=== PATIENT | female | born 1945 | race Caucasian/White ===

== ENCOUNTER 2021-05-06 14:54 | Day surgery (SDC) | payer MEDICARE, OTHER ==
[2021-05-06] MEDS ORDERED: Sodium Chloride 0.9(Preservative Free) 10 ML IJ ONE (14:55)
[2021-05-06] MEDS ORDERED: Depo-Medrol 40 MG/ML IM ONE (14:55)
[2021-05-06] MEDS ORDERED: Xylocaine 1% Vial 30 ML PF IJ ONE (14:55)
--- NOTE | 2021-05-06 21:27 | XRAY ---
Indication: Right L4-S1 transforaminal NANCY. Intraoperative fluoroscopy provided for 37 seconds. 2 digital spot image submitted for interpretation demonstrates posterior needle tips projecting over the expected right L4 and L5 nerve roots. Small amount of contrast injected for needle tip placement. Correlate with intraoperative findings/report.
--- NOTE | 2021-05-07 09:44 | XRAY ---
37 seconds of fluoroscopy was used in surgery for a right L4-S1 transforaminal NANCY.
== END 2021-05-06 19:08 | disposition home or self-care (01) ==
LOC: SDC-PAIN 14:54
PROVIDERS: ATTEND Psychiatry & Neurology Pain Medicine
DX: M54.16 Radiculopathy, lumbar region (principal); Z79.899 Other long term (current) drug therapy
CPT/HCPCS: 64479; 64480; 72100; 77003; 77067; 77080; J1030; J2001; Q9966

== ENCOUNTER 2022-08-18 15:30 | Day surgery (SDC) | payer MEDICARE, OTHER ==
[2022-08-18] MEDS ORDERED: LIDOCAINE HCL 1% 50 MG/5 ML VL PF IJ ONE (15:31)
[2022-08-18] MEDS ORDERED: Sodium Chloride 0.9(Preservative Free) 10 ML IJ ONE (15:31)
[2022-08-18] MEDS ORDERED: Depo-Medrol 40 MG/ML IM ONE (15:31)
--- NOTE | 2022-08-18 19:50 | XRAY ---
Indication: Left L3-L5 transforaminal NANCY. Intraoperative fluoroscopy provided for 30 seconds. 4 digital spot images submitted for interpretation demonstrates posterior needle tips projecting over the expected left L3 and L4 nerve roots. Small amount of contrast injected for needle tip placement. Correlate with intraoperative findings/report.
--- NOTE | 2022-08-19 09:05 | XRAY ---
30 seconds fluoroscopy time in surgery for left L3-L5 transforaminal NANCY.
== END 2022-08-18 18:10 | disposition home or self-care (01) ==
LOC: SDC-PAIN 15:30
PROVIDERS: ATTEND Psychiatry & Neurology Pain Medicine
DX: M54.16 Radiculopathy, lumbar region (principal); Z79.899 Other long term (current) drug therapy
CPT/HCPCS: 64483; 64484; 72100; 77003; J1030; J2001; Q9966

== ENCOUNTER 2023-02-02 15:40 | Day surgery (SDC) | payer MEDICARE, OTHER ==
[2023-02-02] MEDS ORDERED: Depo-Medrol 40 MG/ML IM ONE (15:41)
[2023-02-02] MEDS ORDERED: Sodium Chloride 0.9(Preservative Free) 10 ML IJ ONE (15:41)
[2023-02-02] MEDS ORDERED: LIDOCAINE HCL 1% 50 MG/5 ML VL PF IJ ONE (15:41)
[2023-02-02] MEDS ORDERED: Decadron 4 MG INJ IV ONE (15:41)
[2023-02-02] MEDS ORDERED: Lactated Ringers 1,000 ML IV ONE (18:10)
--- NOTE | 2023-02-02 22:06 | XRAY ---
Indication: Left L3-L5 transforaminal NANCY. Intraoperative fluoroscopy provided for 38 seconds. 4 digital spot image submitted for interpretation demonstrates posterior needle tips projecting over the expected left L3 and L4 nerve roots. Small amount of contrast injected for needle tip placement. Correlate with intraoperative findings/report.
--- NOTE | 2023-02-02 22:08 | XRAY ---
Indication: Left piriformis injection. Intraoperative fluoroscopy provided for 11 seconds. Single digital spot image submitted for interpretation demonstrates posterior needle tip projecting over the expected left piriformis muscle. Small amount of contrast injected for needle tip placement. Correlate with intraoperative findings/report.
--- NOTE | 2023-02-03 08:54 | XRAY ---
38 seconds of fluoroscopy was used in surgery for a left lumbar transforaminal NANCY.
--- NOTE | 2023-02-03 10:21 | XRAY ---
11 seconds of fluoroscopy was used in surgery for a left piriformis injection.
== END 2023-02-02 18:30 | disposition home or self-care (01) ==
LOC: SDC-PAIN 15:40
PROVIDERS: ATTEND Psychiatry & Neurology Pain Medicine
DX: M54.16 Radiculopathy, lumbar region (principal); M79.18 Myalgia, other site; Z79.899 Other long term (current) drug therapy
CPT/HCPCS: 20552; 64483; 64484; 72100; 72170; 77002; 77003; J1030; J1100; J2001; Q9966